=== PATIENT | male | born 2000 | race Caucasian/White ===

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

== ENCOUNTER 2024-01-31 08:29 | Emergency (ER) | payer MEDICAID, OTHER ==
[~2024-01-31] VITALS: Ht 182.9 cm; Wt 76.4 kg
[2024-01-31 11:15] VITALS: BP 138/78; PULSE 60; RESP 16; O2SAT 100
[2024-01-31 14:23] VITALS: TEMP 98.3
== END 2024-01-31 11:50 | disposition home or self-care (01) ==
LOC: ER 08:30
DX: S39.012A Strain of muscle, fascia and tendon of lower back, initial encounter (principal); X50.0XXA Overexertion from strenuous movement or load, initial encounter; Y93.89 Activity, other specified; Y92.89 Other specified places as the place of occurrence of the external cause; Y99.8 Other external cause status
CPT/HCPCS: 99284